=== PATIENT | female | born 1965 | race American Indian/Alaskan Native ===

== ENCOUNTER 2021-08-09 12:02 | Outpatient (CLI) | payer OTHER ==
--- NOTE | 2021-08-09 15:02 | XRay Report ---
Right shoulder-3 views INDICATION: RIGHT SHOULDER PAIN. COMPARISON: None. IMPRESSION: No acute osseous abnormality. Soft tissues are normal. Normal alignment. 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 Signer Name: Erasmo Heck MD Signed: 08/09/2021 2:57 PM Workstation Name: [facility] [id number]
== END 2021-08-09 12:03 | disposition home or self-care (01) ==
LOC: XRAY 12:02
PROVIDERS: ATTEND Internal Medicine
DX: M19.011 Primary osteoarthritis, right shoulder (principal)